=== PATIENT | female | born 1965 | race Caucasian/White ===

== ENCOUNTER 2017-06-09 21:04 | Emergency (ER) | payer MEDICAID ==
[2016-05-24 08:31] VITALS: BMI 34.0
[~2017-06-09 21:04] MED LIST: DULERA 200 MCG8.8 GM INH; HYDROCODONE-APA1 TAB PO; LEVOTHYROXINE175 MCG PO; LISINOPRIL-HCTZ1 TA2 PO; SINGULAIR10 MG PO; VENTOLIN HFA18 GM INH
[2017-06-09 21:35] LABS: APPEARANCE CLEAR (CLEAR); BILIRUBIN NEGATIVE (NEGATIVE); COLOR YELLOW (YELLOW); GLUCOSE NEGATIVE (NEGATIVE); KETONE NEGATIVE (NEGATIVE); LEUKOCYTE ESTERASE 1+ (NEGATIVE); NITRITE NEGATIVE (NEGATIVE); PROTEIN TRACE mg/dL (NEGATIVE); SPECIFIC GRAVITY 1.015 (1.005-1.020); UROBILINOGEN NORMAL (NORMAL)
[2017-06-09 21:41] LABS: BACTERIA MODERATE /hpf (NONE SEEN); WHITE CELLS - URINE 25-50 /hpf (0-5)
[2017-06-09 22:50] LABS: BASOPHILS 0.4 % (0-2); EOSINOPHILS 2.9 % (0-7); HEMATOCRIT 42.6 % (36.0-48.0); IMMATURE GRANULOCYTES 0.4 % (0-5); LYMPHOCYTES 26.9 % (15-50); MCH 28.7 pg (26.0-34.0); MCHC 32.9 g/dL (31.0-37.0); MCV 87.3 fL (80.0-100.0); MEAN PLATELET VOLUME 11.4 fL (7.4-10.4); MONOCYTES 8.1 % (2-11); NEUTROPHILS 61.3 % (40-80); PLATELET COUNT 193 10x3/uL (130-400); RBC 4.88 10x6/uL (4.00-5.40); RDW 14.1 % (11.5-14.5); WBC 8.4 10x3/uL (4.8-10.8)
[2017-06-09 23:04] LABS: ALBUMIN 3.8 g/dL (3.4-5.0); ANION GAP 15.3 mmol/L (8-16); BILIRUBIN - TOTAL 0.33 mg/dL (0.2-1.3); CALCIUM 8.4 mg/dL (8.5-10.1); CARBON DIOXIDE 25.5 mmol/L (21.0-32.0); POTASSIUM - SERUM 3.8 mmol/L (3.5-5.1); PROTEIN - SERUM 7.4 g/dL (6.4-8.2)
== END 2017-06-09 23:05 | disposition home or self-care (01) ==
LOC: D.ER 21:04
PROVIDERS: Emergency Medicine; Nurse Practitioner Family
DX: N21.1 Calculus in urethra (principal); N23 Unspecified renal colic; F17.200 Nicotine dependence, unspecified, uncomplicated

== ENCOUNTER 2019-10-25 05:30 | Day surgery (SDC) | payer MEDICAID ==
[2019-10-24 10:09] LABS: ANION GAP 11.2 mmol/L (8-16); CALCIUM 8.9 mg/dL (8.5-10.1); CARBON DIOXIDE 29.3 mmol/L (21.0-32.0); POTASSIUM - SERUM 4.5 mmol/L (3.5-5.1)
[2019-10-24 11:58] LABS: HEMATOCRIT 44.4 % (36.0-48.0); HEMOGLOBIN 13.8 g/dL (12-16); MCH 27.7 pg (26.0-34.0); MCHC 31.1 g/dL (31.0-37.0); PLATELET COUNT 229 10x3/uL (130-400); RBC 4.99 10x6/uL (4.00-5.40); RDW 14.1 % (11.5-14.5); WBC 6.8 10x3/uL (4.8-10.8)
[2019-10-24 11:59] LABS: MEAN PLATELET VOLUME 11.9 fL (7.4-10.4)
[~2019-10-25] VITALS: Ht 175.3 cm; Wt 120.2 kg
[~2019-10-25 05:30] MED LIST changes: +PROAIR HFA INHALER
[2019-10-25 06:12] VITALS: BP 149/80; Ht 175.3 cm; Wt 120.2 kg
[2019-10-25] MEDS ORDERED: HYDROCODON-ACE1 EA10 PO (08:49)
--- NOTE | 2019-10-25 10:13 | NUR ---
1005-RECD TO ROOM 2506 FROM PACU. DROWSY. O2 ON AT 2L PER NC. IV PATENT. R HAND DRESSING DRY AND INTACT. ABD DRSG WITH SCANT DRAINAGE. TAKING ICE CHIPS WITHOUT NAUSEA.
--- NOTE | 2019-10-25 11:31 | OP ---
PATIENT NAME: TANGELA WAYNE MEDICAL RECORD: [id number] :61 LOCATION:D.OPS ADMISSION DATE: SURGEON: EVGENY HATFIELD DO DATE OF OPERATION: 10/25/2019 PROCEDURE PERFORMED: Right ring finger A1 lr release. PREOPERATIVE DIAGNOSIS: Right ring trigger finger. POSTOPERATIVE DIAGNOSIS: Right ring trigger finger. INDICATIONS: Ms. Tangela Wayne is a 53-year-old female who has had right ring triggering for quite some time. She has tried injection to no avail. She wanted something done surgically. She is also having a ventral hernia repair by Dr. Bartlett the same day and wanted it done at the same time. I informed her that would fine, but she would be at risk for infection, bleeding, damage to nerves or vessels, need for further surgery, and continued pain. She was okay with those risks and signed the consent. SURGEON: Evgeny Hatfield DO DESCRIPTION OF PROCEDURE: The patient was taken to the operative suite, laid in supine position, given general anesthetic. Preop antibiotics were given. She was prepped and draped to the right hand. A tourniquet was on and a timeout was performed. Everyone was in agreement as to the correct side, site, patient and procedure. The right upper extremity was then exsanguinated with an Esmarch, the tourniquet was inflated to 250 mmHg and was up for 6 minutes. Incision was then made over the distal crease in the palm right at the ring finger, the fourth ray. Skin incision was made with a 15-blade scalpel and then blunt dissection was made down with Ragnell to the A1 rl. This was released with scissors under direct visualization and the tendon was pulled out through the incision ensuring there was no catching. The freer was then ran up through the tendon sheath as well to ensure there were no other catching spots. Tourniquet was then let down. Bleeding was coagulated with a bipolar and the incision was closed with 4-0 Monocryl in a horizontal mattress fashion. It was dressed with Adaptic, 4 x 4s, Kerlix, and Coban lightly wrapped on the hand. Dr. Bartlett was then operating at that time and exited the room. Blood loss was minimal for my part. COMPLICATIONS: None. TRANSINT:[id number] Voice Confirmation ID: [id number] DOCUMENT ID: [id number] EVGENY HATFIELD DO at 1131 CC: [id number] DICTATION DATE: 10/25/19851 CAR HOPPER: 10/25/19 1011 [facility] [address] [id number]
--- NOTE | 2019-10-29 13:36 | OP ---
PATIENT NAME: HERNANDO WAYNE MEDICAL RECORD: [id number] :61 LOCATION:D.OPS ADMISSION DATE: SURGEON: KRISTI PAZ MD DATE OF OPERATION: 10/25/2019 PREOPERATIVE DIAGNOSES: 1. Recurrent ventral incisional hernia. 2. Right trigger finger. 3. Tobacco dependence syndrome. 4. Asthma. 5. Hypothyroidism. 6. Hypertension. POSTOPERATIVE DIAGNOSES: 1. Recurrent ventral incisional hernia. 2. Right trigger finger. 3. Tobacco dependence syndrome. 4. Asthma. 5. Hypothyroidism. 6. Hypertension. PROCEDURE: 1. Recurrent ventral incisional hernia repair with 6.[address] mesh. 2. Right trigger finger release by Dr. Coon. SURGEON: Kristi Paz MD CO-SURGEON: Dr. Coon REPORT OF OPERATION: The patient's right arm and abdomen were prepped and draped in sterile fashion. Dr. Coon performed the trigger finger release on the patient's right upper extremity. I approached the abdomen. A semicircular incision was made on the inferior aspect of the umbilicus. Electrocautery was used to dissect through the subcutaneous tissues and we elevated the umbilical tissue. Once we were there, we found a large hernia sac. This hernia sac was opened up and noted to have some fatty contents. We resected the hernia sac down to the fascial edges. The hernia defect was 2.5 to 3 cm in greatest diameter. We freed up the fascia above and below using electrocautery and blunt dissection. We eventually inserted a 6.[address] mesh in an underlay fashion and sutured it down on all 4 sides using interrupted 0 Prolenes. The fascia was then closed transversely overlying the mesh using a running 0 Vicryl. The umbilicus was tacked down using an interrupted 3-0 Vicryl and the subcutaneous tissues were reapproximated with interrupted 3-0 Vicryl. The skin was closed with running subcutaneous 5-0 Monocryl. We infused 10 mL of 0.25% Marcaine with epinephrine to the abdominal incision. The wounds were then dressed appropriately. COMPLICATIONS: None. CONDITION: Stable. ANESTHESIA: General endotracheal and local. BLOOD LOSS: Minimal. OPERATIVE REPORT [id number] HERNANDO WAYNE TRANSINT:[id number] Voice Confirmation ID: [id number] DOCUMENT ID: [id number] KRISTI PAZ MD at 1336 CC: [id number] DOZIER [id number] DICTATION DATE: 10/25/1908 PRECISION INSTRUMENT AND TOOL MAKER: 10/25/19 1015 [facility] 10/25/[id number] [place] [address]
== END 2019-10-25 12:55 | disposition home or self-care (01) ==
LOC: D.OPS 05:30 → D.PAN 07:30 → D.OPS 12:55
PROVIDERS: ATTEND Surgery
DX: K43.2 Incisional hernia without obstruction or gangrene (principal); M65.30 Trigger finger, unspecified finger; F17.200 Nicotine dependence, unspecified, uncomplicated; J45.909 Unspecified asthma, uncomplicated; E03.9 Hypothyroidism, unspecified; I10 Essential (primary) hypertension

== ENCOUNTER 2021-05-15 14:01 | Emergency (ER) | payer BC ==
[~2021-05-15] VITALS: Ht 175.3 cm; Wt 113.6 kg
[~2021-05-15 14:01] MED LIST changes: +HYDROCODON-ACE1 EA10 PO
[2021-05-15 14:06] VITALS: Ht 175.3 cm; Wt 113.6 kg
[2021-05-15 15:23] LABS: BASOPHILS 0.9 % (0-2); EOSINOPHILS 2.4 % (0-7); HEMATOCRIT 42.6 % (36.0-48.0); HEMOGLOBIN 14.1 g/dL (12-16); LYMPHOCYTES 30.6 % (15-50); MCH 27.6 pg (26.0-34.0); MCHC 33.2 g/dL (31.0-37.0); MCV 83.3 fL (80.0-100.0); MEAN PLATELET VOLUME 9.2 fL (7.4-10.4); MONOCYTES 7.2 % (2-11); NEUTROPHILS 58.9 % (40-80); PLATELET COUNT 248 10x3/uL (130-400); RBC 5.11 10x6/uL (4.00-5.40); RDW 14.1 % (11.5-14.5); WBC 7.6 10x3/uL (4.8-10.8)
[2021-05-15 15:29] LABS: CALC OSMOLALITY 282 mosm/kg (275-300); CALCIUM 9.1 mg/dL (8.5-10.1); CARBON DIOXIDE 25.7 mmol/L (21.0-32.0); CHLORIDE - SERUM 106 mmol/L (98-107); CREATININE - SERUM 1.2 mg/dL (0.6-1.3); GLUCOSE 119 mg/dL (74-106); POTASSIUM - SERUM 3.9 mmol/L (3.5-5.1); SODIUM 142 mmol/L (136-145); UREA NITROGEN 11 mg/dL (7-18); eGFR NON AFRICAN AMERICAN 49 mL/min (90-120)
[2021-05-15 15:40] LABS: ALBUMIN 3.7 g/dL (3.4-5.0); ALKALINE PHOSPHATASE 101 U/L (30-120); ALT (SGPT) 29 U/L (10-68); BILIRUBIN - TOTAL 0.33 mg/dL (0.2-1.3); CREATINE KINASE 129 UL (21-215); PROTEIN - SERUM 7.9 g/dL (6.4-8.2)
[2021-05-15 15:41] LABS: TROPONIN-I < 0.017 ng/mL (0.000-0.060)
[2021-05-15 16:02] LABS: CKMB 1.3 U/L (0.0-3.6); PRO BNP 231 pg/mL (0-125)
[2021-05-15 18:37] LABS: SARS-CoV-2 ANTIGEN NEGATIVE- SARS-COV-2 (NEGATIVE)
[2021-05-15] MEDS ORDERED: MEDROL DOSE PACK4 MG PO (18:58)
[2021-05-15 20:05] VITALS: BP 151/69
== END 2021-05-15 20:05 | disposition home or self-care (01) ==
LOC: D.ER 14:01
PROVIDERS: Family Medicine
DX: R06.02 Shortness of breath (principal); R79.89 Other specified abnormal findings of blood chemistry; J45.909 Unspecified asthma, uncomplicated; K21.9 Gastro-esophageal reflux disease without esophagitis; Z72.0 Tobacco use; R50.9 Fever, unspecified